=== PATIENT | female | born 1975 | race African-American/Black ===

== ENCOUNTER 2022-10-13 11:42 | Outpatient (REF) | payer OTHER, SELFPAY ==
[2022-10-13 18:34] LABS: CT PCR NOT DETECTED (Not Detect.); NG PCR NOT DETECTED (Not Detect.)
[2022-10-14 09:30] LABS: BV Int Neg Control Negative (Negative); BV Int Pos Control Positive (Positive)
[2022-10-21 05:03] LABS: HPV mRNA E6/E7 rflx Not Detected (Not Detected)
== END 2022-10-13 11:43 | disposition home or self-care (01) ==
LOC: HO.LNP 11:42
PROVIDERS: PCP Internal Medicine; Visit Provider Obstetrics & Gynecology
DX: Z01.419 Encounter for gynecological examination (general) (routine) without abnormal findings (principal); N81.4 Uterovaginal prolapse, unspecified; Z20.2 Contact with and (suspected) exposure to infections with a predominantly sexual mode of transmission
CPT/HCPCS: 0353U; 87480; 87510; 87624; 87660; 88142; 99202

== ENCOUNTER 2022-12-04 08:25 | Outpatient (REF) | payer OTHER, SELFPAY ==
[2022-12-04 11:18] LABS: MANUAL DIFF FLAG NO
[2022-12-04 11:46] LABS: Basophils Percent Auto 0.8 % (0-2); Eosinophils Absolute Auto 0.1 X10*3/uL (0.0-0.4); Eosinophils Percent Auto 1.5 % (0-4); Hematocrit 36.2 % (37.0-47.0); Hemoglobin 10.9 g/dl (12.0-16.0); Imm Gran Abs Auto 0.01 X10*3/uL (0.00-0.03); Imm Gran Pct Auto 0.2 % (0.0-0.4); Lymphocytes Absolute Auto 1.2 X10*3/uL (1.2-4.9); Lymphocytes Percent Auto 25.9 % (20-40); Mean Corpuscular HGB Conc 30.1 g/dl (31.0-35.0); Mean Corpuscular Hemoglobin 25.6 pg (27.0-33.0); Mean Corpuscular Volume 85.2 fL (80.0-98.0); Mean Platelet Volume 13.4 fL (9.4-12.3); Monocytes Absolute Auto 0.3 X10*3/uL (0.1-1.2); Monocytes Percent Auto 6.9 % (2-11); Neutrophils Absolute Auto 3.1 x10*3/uL (2.0-8.3); Neutrophils Percent Auto 64.7 % (45-73); Platelet Count 210 X10*3/uL (160-400); Red Blood Count 4.25 X10*6/uL (4.20-5.50); Red Cell Distribution Width 16.2 % (11.0-16.0); White Blood Count 4.8 X10*3/uL (4.8-10.8)
[2022-12-04 11:57] LABS: Alanine Aminotransferase 10 U/L (0-31); Albumin Level 4.3 g/dL (3.5-5.0); Alkaline Phosphatase 40 U/L (39-117); Anion Gap 13 (12-20); Aspartate Amino Transferase 12 U/L (5-31); Bilirubin Total 0.8 mg/dL (0.0-1.0); Blood Urea Nitrogen 5 mg/dL (9-16); Calcium 9.8 mg/dL (8.4-10.2); Carbon Dioxide 25 mmol/L (22-29); Chloride 108 mmol/L (96-108); Cholesterol 198 mg/dL; Estimated Glomerular Filt Rate > 60; Glucose Fasting 97 mg/dL (60-99); HDL Cholesterol 48 mg/dL; Iron 47 mcg/dL (30-160); LDL Cholesterol Calculated 130 mg/dl; Percent Iron Saturation 13 % (15-50); Potassium 4.1 mmol/L (3.3-5.1); Sodium 142 mmol/L (135-145); Total Iron Binding Capacity 368 mcg/dL (228-428); Total Protein 7.4 g/dL (6.5-8.0); Triglycerides 104 mg/dL; Unsaturated Iron Binding 321 ug/dL
[2022-12-04 12:48] LABS: Syphilis Screen Nonreactive (Nonreactive)
[2022-12-04 12:52] LABS: HBsAGNum1 0.52 S/CO (0.00-0.99); HIV AB/AG Nonreactive (Nonreactive); HIV Num 1 0.06 S/CO (0.00-0.99); Hepatitis B Surface Antigen Negative (Negative); ~HepC Num1 0.08 S/CO (0.00-0.79); ~Hepatitis C Antibody Nonreactive (Nonreactive)
== END 2022-12-04 08:26 | disposition home or self-care (01) ==
LOC: HO.HMGCLDS 08:25
PROVIDERS: Obstetrics & Gynecology; PCP Internal Medicine; Visit Provider Internal Medicine
DX: Z00.00 Encounter for general adult medical examination without abnormal findings (principal); Z11.4 Encounter for screening for human immunodeficiency virus [HIV]; D64.9 Anemia, unspecified; Z20.2 Contact with and (suspected) exposure to infections with a predominantly sexual mode of transmission
CPT/HCPCS: 36415; 80053; 80061; 83540; 85025; 86780; 86803; 87340; 87389

== ENCOUNTER 2023-01-19 07:58 | Outpatient (REF) | payer OTHER, SELFPAY ==
--- NOTE | ~2023-01-19 | MM_ITS ---
EXAMINATION: MM SCREENING DIGITAL BREAST TOMOSYNTHESIS, BILATERAL CLINICAL INFORMATION: Screening. Asymptomatic. The lifetime risk of breast cancer based on the Tyrer-Cuzick Model is 13.2%. COMPARISON: Mammography: None. TECHNIQUE: Digital breast tomosynthesis is performed in both the craniocaudal and mediolateral oblique views along with computer-aided detection (CAD). Synthesized 2D images are generated from the tomosynthesis. FINDINGS: The breasts are extremely dense, which lowers the sensitivity of mammography (ACR BI-RADS breast composition Category d). About the upper outer aspect of the right breast approximately 9 cm from the nipple there is a 4 mm circumscribed density with question single calcification about its wall. Spot compression views are recommended as well as rolled craniocaudal views. About the deep inferior aspect of the left breast on mediolateral oblique projection there is question of a 4 mm partially circumscribed density approximately 9 cm from the nipple. No craniocaudal correlate is seen and spot compression view of this is recommended. About the anterior aspect of the left breast there are 2 partially circumscribed densities approximately 3 cm from the nipple with one measuring approximately 1.6 x 1.5 cm in size. Spot compression views and ultrasound recommended. MM/MM tomosynthesis screening BI IMPRESSION: Bilateral breast findings for further evaluation as described above. ASSESSMENT: BI-RADS 0: Incomplete - Need Additional Imaging Evaluation RECOMMENDATION: 1. Additional views of the bilateral breasts. 2. Targeted ultrasound if warranted after review of the additional views. 3. Radiology department staff will contact the patient for additional imaging.
== END 2023-01-19 07:59 | disposition home or self-care (01) ==
LOC: HO.MAMMO 07:58
PROVIDERS: PCP Internal Medicine; Visit Provider Internal Medicine
DX: Z12.31 Encounter for screening mammogram for malignant neoplasm of breast (principal)
CPT/HCPCS: 77063; 77067

== ENCOUNTER 2023-01-26 07:58 | Outpatient (REF) | payer OTHER, SELFPAY ==
--- NOTE | ~2023-01-26 | MM_ITS ---
EXAMINATION: MM DIAGNOSTIC DIGITAL BREAST TOMOSYNTHESIS, BILATERAL US DIAGNOSTIC ULTRASOUND BREAST, BILATERAL CLINICAL INFORMATION: Recall from baseline screening for nodules with obscured margins anterior central inner left breast and mid posterior upper right breast. TC score 13%. COMPARISON: Mammography: 01/19/2023 (baseline, BI-RADS 0) TECHNIQUE: Mammography: Digital breast tomosynthesis is performed. 2D images are generated from the tomosynthesis. The following views are obtained: Bilateral spot CC, right ML, rolled right CC x2, left spot ML x2. Ultrasound bilateral breasts is performed targeted to the areas of mammographic interest using grayscale imaging and color Doppler without and with harmonics. FINDINGS: The breasts are heterogeneously dense, which may obscure small masses (ACR BI-RADS breast composition Category c). Additional views left breast confirm a smooth circumscribed mass central inner breast with partly obscured margins measuring approximately 1.4 cm. Small asymmetric density mid to posterior 11:00 right breast is also confirmed with smooth margins measuring under 1 cm. There is no architectural abnormality. Ultrasound: Left: Ultrasound left breast demonstrates a mildly complicated benign cyst corresponding to the mammographic finding periareolar upper inner breast measuring 1.9 x 1.4 cm. There is an incidental fine thin avascular internal septation. There is increased through-transmission of sound, no associated color flow. There is also a small simple cyst 8:00 position 5 cm from nipple measuring just under 0.5 cm. Right: Ultrasound right breast demonstrates 2 simple cysts, the larger 11:00 position 4 cm from nipple measuring 1.4 x 1.0 cm and 11:00 6 cm from nipple measuring 0.9 x 0.5 cm. Both are anechoic with increased through-transmission of sound and no color flow. There is also a complicated circumscribed satellite cyst 11:00 position 6 cm from nipple measuring 0.5 cm which shows some internal geographic echogenicity without color flow, likely apocrine metaplasia. This will be reassessed with targeted right breast ultrasound in 6 months. Results are discussed with the patient at time of visit. MM/MM tomosynthesis added view BI IMPRESSION: Right: -Mildly complicated probable benign cyst 11:00 position 5 cm from nipple with internal geographic avascular echogenicity likely related to apocrine metaplasia. Other incidental simple cysts. Left: -Benign fibrocystic changes. ASSESSMENT: BI-RADS 3: Probably Benign RECOMMENDATION: Targeted right breast ultrasound in 6 months. This patient's information was entered into a reminder system with a target due date for their next mammogram.
== END 2023-01-26 07:59 | disposition home or self-care (01) ==
LOC: HO.MAMMO 07:58
PROVIDERS: Visit Provider Internal Medicine
DX: R92.2 Inconclusive mammogram (principal)
CPT/HCPCS: 76642; 77062; 77066

== ENCOUNTER 2023-03-01 09:42 | Emergency (ER) | payer OTHER, SELFPAY ==
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
[2023-03-01 09:51] VITALS: BP 101/56; PULSE 84; RESP 20; TEMP 36.1; O2SAT 97; BMI 31.2
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
== END 2023-03-01 12:40 | disposition home or self-care (01) ==
PROVIDERS: Emergency Provider Emergency Medicine; PCP Internal Medicine
DX: S06.0XAA Concussion with loss of consciousness status unknown, initial encounter (principal); V43.52XA Car driver injured in collision with other type car in traffic accident, initial encounter; Y93.89 Activity, other specified; Y92.414 Local residential or business street as the place of occurrence of the external cause; Y99.9 Unspecified external cause status
CPT/HCPCS: 70450; 99282; 99284

== ENCOUNTER 2023-03-10 07:33 | Outpatient (AMB) | payer OTHER, SELFPAY ==
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
[2023-03-10 08:00] VITALS: BP 108/7; PULSE 70; O2SAT 99; BMI 30.9
== END 2023-03-10 10:36 | disposition home or self-care (01) ==
PROVIDERS: PCP Internal Medicine; Visit Provider Internal Medicine
DX: S06.0XAA Concussion with loss of consciousness status unknown, initial encounter (principal); J45.909 Unspecified asthma, uncomplicated
CPT/HCPCS: 99213

== ENCOUNTER → 2023-07-23 14:00 | Outpatient (BNV) | payer OTHER, SELFPAY | PROVIDERS: PCP Internal Medicine; Visit Provider Radiology Diagnostic Radiology | DX: N60.01 Solitary cyst of right breast (principal) | CPT/HCPCS: 76642 ==

== ENCOUNTER 2023-07-23 14:04 | Outpatient (REF) | payer OTHER, SELFPAY ==
--- NOTE | ~2023-07-23 | US_ITS ---
EXAMINATION: US DIAGNOSTIC ULTRASOUND BREAST, RIGHT CLINICAL INFORMATION: Follow-up mildly complicated circumscribed satellite cysts 11:00 position 6 cm from the nipple measuring 0.5 cm when compared with prior examination dated 01/26/2023.. COMPARISON: 01/26/2023. TECHNIQUE: Ultrasound of the breast is performed with real-time almazan scale imaging and color Doppler. FINDINGS: The previously seen 5 mm cyst at the 11:00 axis of the right breast, 6 image from the nipple, now has more of a typical appearance of a simple cyst with through transmission and is anechoic internally. No suspicious features. It is well-circumscribed. This finding is benign and no further follow-up recommended. The previously seen more lateral simple cyst is again noted measuring approximately 1.0 cm in diameter, however the more medial simple cyst is not well seen and may have resolved. There are no additional abnormal findings in the scanned area of the right breast. US/US breast RT limited mamm only IMPRESSION: 5 mm cyst at the 11:00 axis of the right breast, 6 cm from the nipple, now has the appearance of benign simple cyst. No further follow-up recommended. ASSESSMENT: BI-RADS 2: Benign RECOMMENDATION: Routine annual mammography screening. This patient's information was entered into a reminder system with a target due date for their next mammogram.
== END 2023-07-23 14:05 | disposition home or self-care (01) ==
LOC: HO.MAMMO 14:04
PROVIDERS: PCP Internal Medicine; Visit Provider Internal Medicine
DX: R92.2 Inconclusive mammogram (principal)
CPT/HCPCS: 76642

== ENCOUNTER 2024-03-01 12:58 | Outpatient (AMB) | payer OTHER, SELFPAY ==
--- NOTE | 2024-03-01 13:00 | MHC.OFFVIS ---
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 Clinical Services Manager Services: Clinical Services Manager Present Information Interpreted: clinical only Safety Coordinator: Safety Coordinator Present Allergies raw fruits Allergy (Mild, Uncoded 03/01/24 13:10) Swelling Medication List - Last Reconciled 03/01/24 by Indigo Alegre CNM albuterol sulfate 90 mcg/actuation 2 puffs inhalation Q6H PRN montelukast 10 mg PO BEDTIME Is last menstrual period known: Yes Last menstrual period: 02/12/24 Do you need a note to return to daycare/school/sports/work: No HPI HPI 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 She saw Dr. Vieyra last year had a cystocele and prolapse cervix and cervical polyp. She was referred to [facility] but they did not take her insurance so she was seen by Urogynecology in [place] she has been followed there and has been trying different pessary ease and currently is having little more success with 1 she is using in an effort to forestall hysterectomy. She said the cervical polyp popped and the blood let out of it and so it is less of a protrusion but it still is there. She uses the pessary is during day but takes them out at night. She was told by urogynecology that they would not remove just the polyp so she tends to discuss whether not that is a consideration again with Dr. Vieyra (I informed her I am not a printing screen assembler). She is interested in STI screening and getting blood work. She does meditation for self-care. [facility] Medical History Vaso vagal episode Asthma Family History (Updated 03/10/23 @ 08:48 by BRAEDEN Hoang) Maternal Grandmother Breast cancer Father DM (diabetes mellitus) Mother No problems noted. 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 Patient Tobacco Use Status: Never used Tobacco e-Cigarette/Vaping Use: Never Used service: No Current occupational status: employed Hearing needs: No Vision needs: Yes Female Reproductive History Menstrual Age of Menarche: 12 Duration of menses: 3-5 days Date of last menstrual period: 02/12/24 control method: none Total pregnancies: 1 Full term: 1 Date of last pap smear: 10/13/22 (negative) History of abnormal pap smear: No Date of Mammogram: 01/19/23 (BI-RADS 3: Probably Benign) Physical Exam Vital Signs: Last Vital Signs BP 122/70 03/01/24 13:09 BMI result Body Mass Index 33.6 Const General: healthy appearing, comfortable, no acute distress, well developed and alert Nutritional Appearance: average body habitus Orientation/consciousness: patient oriented x3 Limitations: no limitations HEENT Head: Yes normocephalic Neck Neck: Yes normal visual inspection Chest Chest palpation & inspection: normal inspection of the chest Breast/axilla inspection: normal inspection of the breasts and normal inspection of the axillae Breast/axilla palpation: normal palpation of the breasts and normal palpation of the axillae Resp Effort & Inspection: normal respiratory effort GI Inspection: Yes normal to inspection, No Abdominal wall edema and No distended Palpation (GI): Soft to palpation and nontender Other: External exam within normal limits but there is visible part of the cervix at the introitus cervix is long multiparous with a long protrusion posteriorly of about 2-3 cm. The cervix does prolapse down through the speculum during the exam and was pushed gently upwards with a school Pap Mica of the speculum to prevent prolapse. Uterus is small not very enlarged anteverted mobile nontender patient is able to do Kegel with some upward retraction the cervix but there still is prolapse. The discharge appears very healthy and normal and scant.. General: Yes bladder normal to palpation External Female Exam: normal external appearance and normal appearance of the urethra Speculum Exam - Vagina: normal appearance of the vagina, normal palpation and normal vaginal discharge Speculum Exam - Cervix: normal appearance of the cervix, normal palpation and nontender Bimanual exam- vagina & uterus: normal bimanual exam, normal palpation, uterine size normal, bladder normal to palpation, consistency normal, normal palpation, uterine mobility normal, uterine shape normal, No Cervical tenderness present, non-tender and no cervical motion tenderness Bimanual Exam- Adnexa, other: normal adnexae, no masses, normal and No adnexal tenderness Neuro General: patient oriented x3 Results Reviewed Results Reviewed: Name: Ngoc Jenkins Age/Sex: 47/F Attending: Elias Vieyra MD : 1975 Submitted by: Elias Vieyra MD Copies to: Yumiko Laureano MD MR #: [id number] Status: DEP REF Collected: 10/13/22 Location: [facility] Received: 10/13/22 Interpretation Satisfactory for evaluation. Negative for intraepithelial lesion or malignancy. HPV mRNA E6/E7: NOT DETECTED This assay detects E6/E7 viral messenger RNA (mRNA) from 14 high-risk HPV types (16, 18, 31, 33, 35, 39, 45, 51, 52, 56, 58, 59, 66, 68) HPV testing performed by [facility], [place], [place]. See reference laboratory portion of the EMR for entire report. Clinical Information LMP: 10/07/22 Previous PAP test: Unknown Material Received ThinPrep-Cervical Copies To Yumiko Laureano MD [address] [place] [address] Dr. [place]ández, [place] [id number] Elias Vieyra MD [address] [place] [address] Dr. Yessica Clifford [place] [id number] Electronically Signed By: Lisa Lee 10/25/22 [id number] The Pap Test is a screening procedure with the inherent possibility of both false negative and false positive results. Results should be interpreted in the context of historic and current clinical findings. Reliability of the Pap Test is enhanced by performing the test on a regular repetitive basis. Patient: Ngoc Jenkins Age/Sex: 47/F MR#: [id number] Page 1 of 1 Assessment & Plan Assessment & Plan (1) Cystocele with uterine prolapse: Comment: Cervical polyp Mild cystocele, central and bilateral paravaginal defect Mild rectocele; seeing urogynecologist in [place] currently using pessary.... Code(s): N81.4 - Uterovaginal prolapse, unspecified Category: Medical (2) Screen for STD (sexually transmitted disease): Code(s): Z11.3 - Encounter for screening for infections with a predominantly sexual mode of transmission Category: Medical (3) Well woman exam with routine gynecological exam: Code(s): Z01.419 - Encounter for gynecological examination (general) (routine) without abnormal findings Category: Medical Plan -----Discussed in this visit the following: healthy balanced diet, regular and consistent exercise, getting recommended health screens, doing the best she can for her particular health concerns, kegel exercises, pap smear screening and followup recommendations, mammography screening and SBE, normal changes in cycles in her life stage--- . She is not due for Pap smear as last year's Pap smear was completely within normal limits HPV. She is up-to-date on her mammograms she did have a couple of last year but the verdict was that there were just normal fibro cystic changes seen She is continuing with use of the pessary during the day at this time. She does not tend to have a discussion with gynecology about of the polyp and whether not that is possible it is less of a prolapsing problem how that it popped and periodically uses a little blood. Orders: Orders Syphilis Screen Today N81.4 - Uterovaginal prolapse, unspecified, Z01.419 - Encounter for gynecological examination (general) (routine) without abnormal findings, Z11.3 - Encounter for screening for infections with a predominantly sexual mode of transmission Hepatitis B Surface Antigen Today N81.4 - Uterovaginal prolapse, unspecified, Z01.419 - Encounter for gynecological examination (general) (routine) without abnormal findings, Z11.3 - Encounter for screening for infections with a predominantly sexual mode of transmission Hepatitis C Antibody Today N81.4 - Uterovaginal prolapse, unspecified, Z01.419 - Encounter for gynecological examination (general) (routine) without abnormal findings, Z11.3 - Encounter for screening for infections with a predominantly sexual mode of transmission HIV Ab/Ag Today N81.4 - Uterovaginal prolapse, unspecified, Z01.419 - Encounter for gynecological examination (general) (routine) without abnormal findings, Z11.3 - Encounter for screening for infections with a predominantly sexual mode of transmission Coding Level of Care Code Est Pt Prev Care 40-64y(42952) Diagnoses Cystocele with uterine prolapse N81.4 Screen for STD (sexually transmitted disease) Z11.3 Well woman exam with routine gynecological exam Z01.419
[2024-03-01 13:09] VITALS: BP 122/70; BMI 33.6
== END 2024-03-01 13:50 | disposition home or self-care (01) ==
LOC: HO.HWSM 12:58
PROVIDERS: PCP Internal Medicine; Visit Provider Advanced Practice Midwife
DX: Z01.419 Encounter for gynecological examination (general) (routine) without abnormal findings (principal); N81.4 Uterovaginal prolapse, unspecified
CPT/HCPCS: 99396

== ENCOUNTER 2024-03-01 12:58 | Outpatient (REF) | payer OTHER, SELFPAY ==
[2024-03-02 04:11] LABS: CT PCR NOT DETECTED (Not Detect.); NG PCR NOT DETECTED (Not Detect.)
[2024-03-02 09:48] LABS: Bacterial Vaginosis PCR NEGATIVE (Negative); Candida Group PCR NOT DETECTED (Not Detect); Candida glab krusei PCR NOT DETECTED (Not Detect); Trichomonas vaginalis PCR NOT DETECTED (Not Detect)
== END 2024-03-01 12:59 | disposition home or self-care (01) ==
LOC: HO.LAB 12:58
PROVIDERS: PCP Internal Medicine; Visit Provider Advanced Practice Midwife
DX: N81.4 Uterovaginal prolapse, unspecified (principal); N89.8 Other specified noninflammatory disorders of vagina; Z20.2 Contact with and (suspected) exposure to infections with a predominantly sexual mode of transmission
CPT/HCPCS: 0352U; 87491; 87591

== ENCOUNTER 2024-12-06 14:07 | Outpatient (REF) | payer OTHER, SELFPAY ==
--- OUTSIDE RECORDS SUMMARY | 2024-12-06 15:21 | XMS_ITS | Referral Summary ---
Author Organization [facility] Address [address] [place] [address] Care Team Providers Care Learning Center Coordinator Name Role Phone GeorgiYumiko Primary Care Provider [phone] Allergies Active Allergy Reactions Criticality Noted Date Comments Latex Rash 01/31/2024 Medications albuterol (PROAIR HFA,VENTOLIN HFA) 90 mcg inhaler INHALE 2 PUFFS EVERY 6 HOURS NEEDED FOR SHORTNESS OF BREATH OR WHEEZING 3 Active ibuprofen (MOTRIN) 800 mg tablet SMARTSI Tablet(s) By Mouth Every 8 Hours PRN 2 Active Social History Tobacco Use Types Packs/Day Years Used Date Smoking Tobacco: Never Smokeless Tobacco: Never Tobacco Cessation:Counseling Given: Not Answered Alcohol Use Standard Drinks/Week Comments Yes 2 (1 standard drink = 0.6 oz pur e alcohol) Comments No Sex and Gender Information Value Date Recorded Sex Assigned at Female 11/01/2023 8:50 AM EDT Legal Sex Female 11:28 AM EDT Gender Identity Female 11/01/2023 8:50 AM EDT Sexual Orientation Lesbian or Nicole 11/01/2023 8: 50 AM EDT Last Filed Vital Signs Vital Sign Reading Time Taken Comments Blood Pressure 138/92 01/31/2024 3:56 PM EDT Pulse - - Temperature - - Respiratory Rate - - Oxygen Saturation - - Inhaled Oxygen Concentration - - Weight 87.1 kg (192 lb) 01/31/2024 3:56 PM EDT Height 166.4 cm (5' 5.5 ) 01/31/2024 3:56 PM EDT Body Mass Index 31.46 01/31/2024 3:56 PM EDT Plan of Treatment Not on file Insurance [facility] Care Teams Learning Center Coordinator Relationship Specialty Start Date End Date Yumiko Laureano [address] [place] [address] [place] [id number] PCP - General Internal Medicine 01/27/23
--- OUTSIDE RECORDS SUMMARY | 2024-12-06 15:21 | XMS_ITS | Clinical Summary ---
Author Organization [facility] Address [address] [place] [address] Care Team Providers Care Hardboard Supervisor Name Role Phone GeorgiYumiko Primary Care Provider [phone] Allergies Active Allergy Reactions Criticality Noted Date [...] 01/31/2024 3:56 PM EDT Plan of Treatment Health Maintenance Due Date Last Done Comments Cervical Cancer Screening 1975 Cologuard 1975 Colon Cancer Screening 1975 Colonoscopy 1975 FOBT / Fit Test 1975 HIV Screening 1975 HPV and Pap Smear 1975 Hepatitis C Screening 1975 Pap Smear 1975 Sigmoidoscopy 1975 Hepatitis B Vaccines (1 of 3 - 19+ 3-dose series) 1994 DTaP,Tdap,and Td Vaccines (1 - Tdap) 1997 Mammogram 2015 COVID-19 Vaccine (3 - 2023-2 5 season) 2024 03/25/2021, 02/25/2021 Alcohol/Substance Use Screening 08/02/2024 Depression Screening and Follow-Up 08/02/2024 Social Drivers of Health Annual Screening 08/02/2024 Influenza Vaccine (Season Ended) 2025 RSV Vaccine (60+ years old a nd patients) (1 - 1-dose 75+ series) 2050 Pneumococcal Vaccine: Pediatric (0-5 Years) and At-Risk Patients (6-50 Years) Aged Out No longer eligible based on patient's age to complete this topic Insurance [facility] Care Teams Hardboard Supervisor Relationship Specialty Start Date End Date Yumiko Laureano [address] [place] [address] PCP - General Internal Medicine 01/27/23
== END 2024-12-06 14:08 | disposition home or self-care (01) ==
LOC: HO.MAMMO 14:07
PROVIDERS: PCP Internal Medicine; Visit Provider Internal Medicine
DX: Z13.89 Encounter for screening for other disorder (principal)

== ENCOUNTER 2024-12-13 10:45 | Outpatient (REF) | payer OTHER, SELFPAY ==
--- OUTSIDE RECORDS SUMMARY | 2024-12-13 12:25 | XMS_ITS | Clinical Summary ---
Author Organization [facility] Address [address] [place] [address] Care Team Providers Care Car Starter Name Role Phone GeorgiYumiko Primary Care Provider [phone] Allergies Active Allergy Reactions Criticality Noted Date [...] patient's age to complete this topic Insurance [facility] Care Teams Car Starter Relationship Specialty Start Date End Date Yumiko Laureano [address] [place] [address] PCP - General Internal Medicine 01/27/23
--- OUTSIDE RECORDS SUMMARY | 2024-12-13 12:25 | XMS_ITS | Referral Summary ---
Author Organization [facility] Address [address] [place] [address] Care Team Providers Care Software Sales Representative Name Role Phone GeorgiYumiko Primary Care Provider [phone] Allergies Active Allergy Reactions Criticality Noted Date [...] Plan of Treatment Not on file Insurance [facility] Care Teams Software Sales Representative Relationship Specialty Start Date End Date Yumiko Laureano [address] [place] [address] [place] [address] PCP - General Internal Medicine 01/27/23
[2024-12-13 21:28] LABS: Bacterial Vaginosis PCR NEGATIVE (Negative); Candida Group PCR NOT DETECTED (Not Detect); Candida glab krusei PCR NOT DETECTED (Not Detect); Trichomonas vaginalis PCR NOT DETECTED (Not Detect)
[2024-12-13 21:55] LABS: CT PCR NOT DETECTED (Not Detect.); NG PCR NOT DETECTED (Not Detect.)
== END 2024-12-13 10:46 | disposition home or self-care (01) ==
LOC: HO.LNP 10:45
PROVIDERS: PCP Internal Medicine; Visit Provider Obstetrics & Gynecology
DX: Z20.2 Contact with and (suspected) exposure to infections with a predominantly sexual mode of transmission (principal)
CPT/HCPCS: 81515; 87491; 87591

== ENCOUNTER 2024-12-13 10:45 | Outpatient (AMB) | payer OTHER, SELFPAY ==
--- NOTE | 2024-12-13 10:55 | A.OFFVIS_ITS ---
Vital Signs 12/13/24 10:56 Height 5 ft 5 in Weight 202 lb BMI 33.6 Intake Visit Reasons: breast issues Medical Grade Shoemaker Required: No Information Interpreted: non-clinical & clinical Engineering Document Control Clerk: Engineering Document Control Clerk Present ([facility]) Accompanied by: Self / Same As Patient Allergies raw fruits Allergy (Mild, Uncoded 12/13/24 10:56) Swelling HPI Comments Details: The patient is presenting complaining of right breast tender lump over the last few months no associated nipple discharge or any other concerns. In addition, The patient is complaining of markedly depressed mood, feelings of hopelessness, anxiety, tension, affective lability, Persistent and marked anger / irritability / increased interpersonal conflicts, decreased interest in usual activities, difficulty in concentrating, lack of energy, marked food cravings, insomnia, feeling overwhelmed or out of control, breast tenderness , headaches, bloating. all those symptoms are cyclic and disappear after menses. Those disturbances are affecting her usual social activities and relationships. The patient is requesting STD screen Last screening mammogram in 01/22 was BI-RADS 3, followed by right breast ultrasound in 07/21 Joanie which was BI-RADS 2 showed a 5 mm cyst at 11:00 6 cm from the nipple. No mammogram since then [facility] Medical History Vaso vagal episode Asthma Family History (Updated 03/10/23 @ 08:48 by Aranza Agustin Kassi) Maternal Grandmother Breast cancer Father DM (diabetes mellitus) Mother No problems noted. 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 Patient Tobacco Use Status: Never used Tobacco e-Cigarette/Vaping Use: Never Used service: No Current occupational status: employed Hearing needs: No Vision needs: Yes Female Reproductive History Menstrual Age of Menarche: 12 Review of Systems Const All systems reviewed & are unremarkable except as noted in HPI and below Physical Exam Vital Signs: BMI result Body Mass Index 33.6 Chest Chest palpation & inspection: normal inspection of the chest Breast/axilla inspection: inspection of breasts abnormal (Right breast tender lump 11:00 6 cm from the nipple, left breast wnl) General: Yes no CVA tenderness External Female Exam: normal external appearance and normal appearance of the urethra Speculum Exam - Vagina: normal appearance of the vagina, normal palpation, no lesions and no masses Speculum Exam - Cervix: normal appearance of the cervix, normal palpation, no lesions, no masses and nontender Bimanual exam- vagina & uterus: normal bimanual exam, normal palpation, uterine size normal, normal palpation, uterine shape normal, No Cervical tenderness present and non-tender Bimanual Exam- Adnexa, other: normal adnexae Back/Spine/Pelvis Back: no CVA tenderness Assessment & Plan Assessment & Plan (1) Breast lump on right side at 11 o'clock position: Comment: 6 cm from the nipple Code(s): N63.11 - Unspecified lump in the right breast, upper outer quadrant Category: Medical Plan: Discussed with the patient the finding on Breast exam (breast lump) .The differential diagnosis includes but not limited to lump/cyst/pre cancer/cancer or dense breast tissue. The work up includes breast US and diagnostic mammogram and referred the patient for surgical breast consult. (2) Screen for STD (sexually transmitted disease): Code(s): Z11.3 - Encounter for screening for infections with a predominantly sexual mode of transmission Category: Medical Plan: STD screening tests done includes: BV panel for trichomonas, GC/CT will send patient for serology std screening for HIV, RPR, Hep b s Ag, HepC Ab. Instructions given the patient to schedule a follow-up appointment for repeat serology screen in 6 months for possible false negatives. (3) PMDD (premenstrual dysphoric disorder): Code(s): F32.81 - Premenstrual dysphoric disorder Category: Medical Plan: TSH ordered. Will start with fluoxetine 10 mg p.o. q.d. to be started on day of onset of symptoms till start of menses. Will titrate the dose up to 20 mg as needed. Instructed the patient to call if symptoms don't improve and to schedule a follow-up appointment within 90 days. The patient verbalized und erstanding and agreed with the plan. Orders: Orders MM tomosynthesis diagnostic BI Today N63.11 - Unspecified lump in the right breast, upper outer quadrant US breast RT limited Today N63.11 - Unspecified lump in the right breast, upper outer quadrant Hepatitis C Antibody Today Z20.2 - Contact with and (suspected) exposure to infections with a predominantly sexual mode of transmission HIV Ab/Ag Today Z20.2 - Contact with and (suspected) exposure to infections with a predominantly sexual mode of transmission Syphilis Screen Today Z20.2 - Contact with and (suspected) exposure to infections with a predominantly sexual mode of transmission Hepatitis B Surface Antigen Today Z20.2 - Contact with and (suspected) exposure to infections with a predominantly sexual mode of transmission TSH reflex Free T4 Today F32.81 - Premenstrual dysphoric disorder Referrals General Surgery Referral N63.11 - Unspecified lump in the right breast, upper outer quadrant Medications: New fluoxetine To be started on the day of onset of symptoms till the start of menses 10 mg PO DAILY 42 caps 0RF Coding Level of Care Code Est Pt Level 3 (80399) Diagnoses Breast lump on right side at 11 o'clock position N63.11 Screen for STD (sexually transmitted disease) Z11.3 PMDD (premenstrual dysphoric disorder) F32.81
[2024-12-13 10:56] VITALS: BMI 33.6
--- OUTSIDE RECORDS SUMMARY | 2024-12-13 11:48 | XMS_ITS | Clinical Summary ---
Author Organization [facility] Address [address] [place] [address] Care Team Providers Care Unit Manager Name Role Phone GeorgiYumiko Primary Care Provider [phone] Allergies Active Allergy Reactions Criticality Noted Date [...] patient's age to complete this topic Insurance [facility] Care Teams Unit Manager Relationship Specialty Start Date End Date Yumiko Laureano [address] [place] [address] PCP - General Internal Medicine 01/27/23
--- OUTSIDE RECORDS SUMMARY | 2024-12-13 11:48 | XMS_ITS | Referral Summary ---
Author Organization [facility] Address [address] [place] [address] Care Team Providers Care Cold Meat Chef Name Role Phone GeorgiYumiko Primary Care Provider [phone] Allergies Active Allergy Reactions Criticality Noted Date [...] Plan of Treatment Not on file Insurance [facility] Care Teams Cold Meat Chef Relationship Specialty Start Date End Date Yumiko Laureano [address] [place] [address] [place] [address] PCP - General Internal Medicine 01/27/23
== END 2024-12-13 11:12 | disposition home or self-care (01) ==
LOC: HO.HWS 10:45
PROVIDERS: PCP Internal Medicine; Visit Provider Obstetrics & Gynecology
DX: N63.11 Unspecified lump in the right breast, upper outer quadrant (principal); Z11.3 Encounter for screening for infections with a predominantly sexual mode of transmission; F32.81 Premenstrual dysphoric disorder
CPT/HCPCS: 99213

== ENCOUNTER 2025-01-25 13:17 | Outpatient (AMB) | payer OTHER, SELFPAY ==
[2025-01-25 13:24] VITALS: BP 110/66; PULSE 86; TEMP 37.1; O2SAT 98; BMI 36.3
--- NOTE | 2025-01-25 13:24 | A.OFFPC_ITS ---
Vital Signs 01/25/25 13:24 Height 5 ft 5 in Weight 218 lb BMI 36.3 BP 110/66 Blood Pressure Location Lt brachial Position Sitting Pulse 86 Pulse Source Pulse Oximeter Temp 98.8 F Temp Source Oral Pulse Oximetry (%) 98 Oxygen Delivery Method Room Air Intake Visit Reasons: Annual PE Intake Note: Pt is here today for PE. Allergies raw fruits Allergy (Mild, Uncoded 01/25/25 13:32) Swelling Medication List - Last Reconciled 01/25/25 by Yumiko Laureano MD albuterol sulfate 90 mcg/actuation 2 puffs inhalation Q6H PRN fluoxetine 10 mg PO DAILY montelukast 10 mg PO BEDTIME Tobacco use date assessed: 01/25/25 Dental Screening Dental Screen Date: 01/25/25 Did you have a dental visit in the last 12 months?: Yes Did you have a dental problem in the last 6 months where you did not have access to dental care?: No Was dental information given to patient?: Patient has dentist HPI Annual PE HPI Details Pt presents for PE. Patient complains of gaining 30 lb in the last year. She reports lower extremity swelling and heaviness worse in the last few weeks with the hot weather. Patient has not been physically active but reports having dyspnea on exertion when walking up the stairs. She denies chest pain PND orthopnea. [facility] Medical History (Updated 01/25/25 @ 15:36 by Yumiko Laureano MD) PMDD (premenstrual dysphoric disorder) Annual physical exam Edema Anemia Vaso vagal episode Asthma Family History Maternal Grandmother Breast cancer Father DM (diabetes mellitus) Mother No problems noted. 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 1. Little interest or pleasure in doing things: not at all 2. Feeling down, depressed, or hopeless: several days 3. Trouble falling or staying asleep, or sleeping too much: more than half the days 4. Feeling tired or having little energy: nearly every day 5. Poor appetite or overeating: several days 6. Feeling bad about yourself - or that you are a failure or have let yourself or your family down: not at all 7. Trouble concentrating on things, such as reading the newspaper or watching television: several days 8. Moving or speaking so slowly that other people could have noticed. Or the opposite - being so fidgety or restless that you have been moving around a lot more than usual: not at all 9. Thoughts that you would be better off or of hurting yourself in some way: not at all Total score: 8 Depression Screening Interpretation: Negative Depression Screening Done: Yes 52249 - PHQ-9 Billing: Yes Source: Developed by Drs. Charles Bennett, Lilli Morris, Vladislav Ibanez and colleagues, with an educational claudia from [employer]. Thrive Questionnaire Date Thrive assessed: 01/25/25 I am a: Patient What is your living situation today?: I have a steady place to live Within the past 12 months, did the food you bought not last and you didn't have the money to get more?: Never true Within the past 12 months, did you worry whether your food would run out before you got money to buy more?: Never true Do you have trouble paying for medicines?: No Do you have trouble getting transportation to medical appointments?: No Do you have trouble paying your heating and electricity bill?: No Do you have trouble taking care of your child, family member or friend?: No Do you have trouble with day-to-day activities such as bathing, preparing meals, shopping, managing finances, etc.?: No Are you currently unemployed and looking for a job?: No Are you interested in more education?: Yes Please select the resources that you would like help with: None Currently or been in a relationship where the following occur: I choose not to answer THRIVE Score: 0 AUDIT C Alcohol Use Questionnaire (AUDIT-C) 1. How often do you have a drink containing alcohol?: 2-4 times a month 2. How many drinks containing alcohol do you have on a typical day when you are drinking?: 1 or 2 3. How often do you have six or more drinks on one occasion?: Never Total Score: 2 JAMILA-7 AMB Questionnaire JAMILA-7 Date JAMILA - 7 assessed: 01/25/25 Feeling nervous, anxious, or on edge: 1 = Several days Not being able to stop or control worryin = Not at all Worrying too much about different things: 0 = Not at all Trouble relaxin = Several days Being so restless that it is hard to sit still: 0 = Not at all Becoming easily annoyed or irritable: 1 = Several days Feeling afraid as if something awful might happen: 0 = Not at all Total JAMILA-7 score (0-4 normal; 5-9 mild; 10-14 moderate; 15-21 severe): 3 Source: Developed by Drs. Charles Bennett, Lilli Morris, Vladislav Ibanez and colleagues, with an educational claudia from [employer]. JAMILA-7 Assessment Billing JAMILA-7 Assessment Tool: JAMILA-7 Assessment 80922 Review of Systems Const All systems reviewed & are unremarkable except as noted in HPI and below Reports no additional complaints Eyes Reports no additional complaints ENT Reports no additional complaints Card Reports no additional complaints Resp Reports no additional complaints GI Reports no additional complaints Reports no additional complaints Musc Reports no additional complaints Physical exam (Primary Care) Vital Signs: Last Vital Signs Temp 98.8 F 01/25/25 13:24 Pulse 86 01/25/25 13:24 BP 110/66 01/25/25 13:24 Pulse Ox 98 01/25/25 13:24 Oxygen Delivery Method Room Air 01/25/25 13:24 BMI result Body Mass Index 36.3 Tobacco/Smoking Status: Tobacco use Status Tobacco use date assessed 01/25/25 01/25/25 13:37 Patient Tobacco Use Status Never used Tobacco 01/25/25 13:37 e-Cigarette/Vaping Use Never Used 01/25/25 13:24 PHQ-9: PHQ-9 Score PHQ-9: Total score 8 01/25/25 13:37 Depression Screening Interpretation: Negative Thrive Assessment: Date of Thrive Assessment Date Thrive assessed 01/25/25 01/25/25 13:37 Currently or been in a relationship where the following occur: I choose not to answer Const General: no acute distress HENMT Head: Yes normal to inspection Ears: hearing grossly normal bilaterally Face and sinus: Yes normal facial exam Mouth: Normal oral and palatal mucosa present Throat: Yes posterior oropharynx normal Eyes General: appearance normal, both eyes and all related structures Neck Neck: Yes no lymphadenopathy and Yes supple Resp Effort & Inspection: normal respiratory effort Auscultation: clear to auscultation bilaterally Cardio Rhythm: regular rhythm Heart sounds: S1 normal heart sound present and S2 normal heart sound present GI Inspection: Yes normal to inspection Palpation (GI): Soft to palpation Percussion: Yes normal to percussion Auscultation: normal bowel sounds Extrem Other: Nonpitting lower extremities edema Coding Level of Care Code Est Pt Prev Care 40-64y(08108) Diagnoses Annual physical exam Z00.00 Anemia D64.9 Edema R60.9 Additional Codes JAMILA-7 Assessment Billing - JAMILA-7 Assessment Tool: JAMILA-7 Assessment 17633 ([id number]) PHQ-9 - 27834 - PHQ-9 Billing: Yes ([id number]) Assessment & Plan Assessment & Plan (1) Annual physical exam: Code(s): Z00.00 - Encounter for general adult medical examination without abnormal findings Category: Medical Plan: Well-balanced diet, regular exercise, weight loss discussed with the patient. she will return for fasting blood work. Patient is up-to-date with the Pap smear by weld inspector and will schedule mammogram. She declined colonoscopy. Cologuard will be checked (2) Anemia: Comment: Iron def , used to get Iron infusion last 2014 Code(s): D64.9 - Anemia, unspecified Category: Medical Plan: Check CBC and iron (3) Edema: Comment: Chronic lower extremities Code(s): R60.9 - Edema, unspecified Category: Medical Plan: But running lower extremity lymphedema furosemide 20 mg daily for 3 days then every other day will be try for 1 month. Patient will follow-up in 1 month Orders: Orders Lipid Panel Today D64.9 - Anemia, unspecified, Z00.00 - Encounter for general adult medical examination without abnormal findings IRON PROFILE Today D64.9 - Anemia, unspecified, Z00.00 - Encounter for general adult medical examination without abnormal findings Vitamin D 25-OH Total Today D64.9 - Anemia, unspecified, Z00.00 - Encounter for general adult medical examination without abnormal findings Vitamin B12 and Folate Today D64.9 - Anemia, unspecified, Z00.00 - Encounter for general adult medical examination without abnormal findings UA w Microscopic Today D64.9 - Anemia, unspecified, Z00.00 - Encounter for general adult medical examination without abnormal findings B Type Natriuretic Peptide Today R60.9 - Edema, unspecified Comprehensive [place]. Panel Fast Today D64.9 - Anemia, unspecified, Z00.00 - E ncounter for general adult medical examination without abnormal findings Complete Blood Count Auto Diff Today D64.9 - Anemia, unspecified, Z00.00 - Encounter for general adult medical examination without abnormal findings TSH reflex Free T4 Today D64.9 - Anemia, unspecified, Z00.00 - Encounter for general adult medical examination without abnormal findings Referrals Cologuard Test Z12.11 - Encounter for screening for malignant neoplasm of colon, Z12.12 - Encounter for screening for malignant neoplasm of rectum Medications: New furosemide (Lasix) 20 mg PO DAILY 30 tabs 0RF
== END 2025-01-25 14:10 | disposition home or self-care (01) ==
LOC: HO.HMCC 13:18
PROVIDERS: PCP Internal Medicine; Visit Provider Internal Medicine
DX: Z00.00 Encounter for general adult medical examination without abnormal findings (principal); D64.9 Anemia, unspecified; R60.9 Edema, unspecified

== ENCOUNTER → 2025-01-25 13:17 | Outpatient (BNVA) | payer OTHER, SELFPAY | PROVIDERS: PCP Internal Medicine; Visit Provider Internal Medicine | DX: Z00.00 Encounter for general adult medical examination without abnormal findings (principal); D64.9 Anemia, unspecified; R60.9 Edema, unspecified | CPT/HCPCS: 96127 ==

== ENCOUNTER 2025-01-30 13:43 | Outpatient (REF) | payer OTHER, SELFPAY ==
[2025-01-30 14:08] LABS: MANUAL DIFF FLAG NO
--- OUTSIDE RECORDS SUMMARY | 2025-01-30 14:53 | XMS_ITS | Referral Summary ---
Author Organization [facility] Address [address] [place] [address] Care Team Providers Care Assistant Program Director Name Role Phone GeorgiYumiko Primary Care Provider Allergies Active Allergy Reactions Criticality Noted Date [...] Not on file Insurance [facility] Care Teams Assistant Program Director Relationship Specialty Start Date End Date Yumiko Laureano [address] [place] [address] [place] [id number] PCP - General Internal Medicine 01/27/23
[2025-01-30 15:01] LABS: Hematocrit 34.9 % (37.0-47.0); Hemoglobin 10.8 g/dl (12.0-16.0); Imm Gran Abs Auto 0.02 X10*3/uL (0.00-0.03); Imm Gran Pct Auto 0.3 % (0.0-0.4); Lymphocytes Absolute Auto 1.5 X10*3/uL (1.2-4.9); Mean Corpuscular HGB Conc 30.9 g/dl (31.0-35.0); Mean Corpuscular Hemoglobin 24.5 pg (27.0-33.0); Mean Corpuscular Volume 79.1 fL (80.0-98.0); NRBC Abs Auto 0.000 X10*3/uL (0.0-0.012); NRBC Pct Auto 0.0 /100WBC (0.0-0.2); Platelet Count 323 X10*3/uL (160-400); Red Blood Count 4.41 X10*6/uL (4.20-5.50); White Blood Count 6.7 X10*3/uL (4.8-10.8)
[2025-01-30 15:07] LABS: Appearance Urine Clear; Glucose Urine UA Negative (Negative); PH 6.5 (5.0-9.0); Specific Gravity - Urine 1.025 (1.005-1.025); UMIC TRIGGER UA YES
[2025-01-30 15:30] LABS: B Type Natriuretic Peptide < 10 pg/mL (<100)
[2025-01-30 15:37] LABS: Alanine Aminotransferase 15 U/L (0-31); Albumin Level 4.5 g/dL (3.5-5.0); Alkaline Phosphatase 49 U/L (39-117); Anion Gap 13 (12-20); Aspartate Amino Transferase 18 U/L (5-31); Blood Urea Nitrogen 11 mg/dL (9-16); Calcium 8.9 mg/dL (8.4-10.2); Carbon Dioxide 25 mmol/L (22-29); Chloride 106 mmol/L (96-108); Cholesterol 247 mg/dL (<200); Estimated Glomerular Filt Rate > 60; HDL Cholesterol 59 mg/dL (>40); Iron 69 mcg/dL (30-160); Percent Iron Saturation 17 % (15-50); Potassium 3.9 mmol/L (3.3-5.1); Sodium 140 mmol/L (135-145); Total Iron Binding Capacity 418 mcg/dL (228-428); Total Protein 7.7 g/dL (6.5-8.0); Triglycerides 127 mg/dL (<150); Unsaturated Iron Binding 349 ug/dL
[2025-01-30 16:09] LABS: Folate 8.3 ng/mL (> or = 4.0); Vitamin B12 296 pg/mL (200-900)
[2025-01-31 07:53] LABS: Syphilis Screen Nonreactive (Nonreactive)
[2025-01-31 08:19] LABS: HBsAGNum1 0.28 S/CO (0.00-0.99); HIV Num 1 0.04 S/CO (0.00-0.99); Hepatitis B Surface Antigen Negative (Negative); ~HepC Num1 0.08 S/CO (0.00-0.79); ~Hepatitis C Antibody Nonreactive (Nonreactive)
== END 2025-01-30 13:44 | disposition home or self-care (01) ==
LOC: HO.LAB 13:43
PROVIDERS: Absent Provider Obstetrics & Gynecology; PCP Internal Medicine; Visit Provider Internal Medicine
DX: Z00.00 Encounter for general adult medical examination without abnormal findings (principal); D64.9 Anemia, unspecified; R60.9 Edema, unspecified; Z20.2 Contact with and (suspected) exposure to infections with a predominantly sexual mode of transmission; F32.81 Premenstrual dysphoric disorder
CPT/HCPCS: 36415; 80053; 80061; 81001; 82306; 82607; 82746; 83540; 83880; 84443; 85025; 86780; 86803; 87340; 87389

== ENCOUNTER 2025-02-15 09:42 | Outpatient (AMB) | payer OTHER, SELFPAY ==
[2025-02-15 09:47] VITALS: BP 104/66; PULSE 97; RESP 18; TEMP 36.8; O2SAT 97; BMI 35.4
--- NOTE | 2025-02-15 09:47 | A.OFFPC_ITS ---
Vital Signs 02/15/25 09:47 Height 5 ft 5 in Weight 213 lb BMI 35.4 BP 104/66 Blood Pressure Location Lt brachial Position Sitting Respiration 18 Pulse 97 Pulse Source Pulse Oximeter Temp 98.2 F Temp Source Oral Pulse Oximetry (%) 97 Oxygen Delivery Method Room Air Intake Visit Reasons: 3 week follow up Intake Note: Pt is here today for 3 weeks follow up visit. Allergies raw fruits Allergy (Mild, Uncoded 01/25/25 13:32) Swelling Medication List - Last Reconciled 02/15/25 by Yumiko Laureano MD albuterol sulfate 90 mcg/actuation 2 puffs inhalation Q6H PRN fluoxetine 10 mg PO DAILY furosemide (Lasix) 20 mg PO DAILY montelukast 10 mg PO BEDTIME Tobacco use date assessed: 01/25/25 Dental Screening Dental Screen Date: 01/25/25 HPI 3 week follow up HPI Details Patient presents for the follow-up of chronic lower extremities' edema. She has been taking furosemide but noticed the most improvement in lower extremity edema after 3 days of taking the medication. Patient has improved her diet , started exercising regularly and lost 5 lb in the last 3 weeks. She denies dyspnea on exertion chest pain palpitations. [facility] Medical History (Updated 02/15/25 @ 10:27 by Yumiko Laureano MD) PMDD (premenstrual dysphoric disorder) Annual physical exam Edema Anemia Vaso vagal episode Asthma Family History Maternal Grandmother Breast cancer Father DM (diabetes mellitus) Mother No problems noted. 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 Housing: Apartment Patient Tobacco Use Status: Never used Tobacco e-Cigarette/Vaping Use: Never Used service: No Current occupational status: employed Hearing needs: No Vision needs: Yes Female Reproductive History Menstrual Age of Menarche: 12 Questionnaire Thrive Questionnaire Date Thrive assessed: 01/25/25 I am a: Patient What is your living situation today?: I have a steady place to live Within the past 12 months, did the food you bought not last and you didn't have the money to get more?: Never true Within the past 12 months, did you worry whether your food would run out before you got money to buy more?: Never true Do you have trouble paying for medicines?: No Do you have trouble getting transportation to medical appointments?: No Do you have trouble paying your heating and electricity bill?: No Do you have trouble taking care of your child, family member or friend?: No Do you have trouble with day-to-day activities such as bathing, preparing meals, shopping, managing finances, etc.?: No Are you currently unemployed and looking for a job?: No Are you interested in more education?: Yes Please select the resources that you would like help with: None Currently or been in a relationship where the following occur: I choose not to answer THRIVE Score: 0 JAMILA-7 AMB Questionnaire JAMILA-7 Date JAMILA - 7 assessed: 01/25/25 Source: Developed by Drs. Charles Bennett, Lilli Morris, Vladislav Ibanez and colleagues, with an educational claudia from [employer]. Review of Systems Const All systems reviewed & are unremarkable except as noted in HPI and below ENT Reports no additional complaints Card Reports no additional complaints Resp Reports no additional complaints GI Reports no additional complaints Physical exam (Primary Care) Vital Signs: Last Vital Signs Temp 98.2 F 02/15/25 09:47 Pulse 97 02/15/25 09:47 Resp 18 02/15/25 09:47 BP 104/66 02/15/25 09:47 Pulse Ox 97 02/15/25 09:47 Oxygen Delivery Method Room Air 02/15/25 09:47 BMI result Body Mass Index 35.4 Tobacco/Smoking Status: Tobacco use Status Tobacco use date assessed 01/25/25 02/15/25 09:47 Patient Tobacco Use Status Never used Tobacco 02/15/25 09:47 e-Cigarette/Vaping Use Never Used 02/15/25 09:47 Thrive Assessment: Date of Thrive Assessment Date Thrive assessed 01/25/25 02/15/25 09:47 Currently or been in a relationship where the following occur: I choose not to answer Const General: no acute distress HENMT Head: Yes normal to inspection Eyes General: appearance normal, both eyes and all related structures Neck Neck: Yes supple Resp Effort & Inspection: normal respiratory effort Auscultation: clear to auscultation bilaterally Cardio Rhythm: regular rhythm Heart sounds: S1 normal heart sound present and S2 normal heart sound present GI Inspection: Yes normal to inspection Extrem Other: 2+ nonpitting edema bilaterally Coding Level of Care Code Est Pt Level 4 (50285) Diagnoses Anemia D64.9 Edema R60.9 Hyperlipidemia E78.5 Assessment & Plan Assessment & Plan (1) Anemia: Comment: Iron def , used to get Iron infusion last 2014, nl Iron studies 01/2025 Code(s): D64.9 - Anemia, unspecified Category: Medical Plan: Monitor CBC (2) Edema: Comment: Chronic lower extremities Code(s): R60.9 - Edema, unspecified Category: Medical Plan: Continue furosemide PRN and wearing compression knee-highs was recommend (3) Hyperlipidemia: Code(s): E78.5 - Hyperlipidemia, unspecified Category: Medical Plan: Low-cholesterol diet increase physical activity weight loss discussed with the patient, follow-up in 3 months with a fasting labs before Orders: Orders Lipid Panel 3 Months D64.9 - Anemia, unspecified, E78.5 - Hyperlipidemia, unspecified Vitamin D 25-OH Total 3 Months D64.9 - Anemia, unspecified, E78.5 - Hyperlipidemia, unspecified Hemoglobin Electrophoresis 3 Months D64.9 - Anemia, unspecified, E78.5 - Hyperlipidemia, unspecified Medications: Refilled furosemide (Lasix) 20 mg PO DAILY 30 tabs 1RF Patient Instructions: Continue furosemide PRN. Patient was advised to wear compression knee highs
--- OUTSIDE RECORDS SUMMARY | 2025-02-15 10:03 | XMS_ITS | Referral Summary ---
Author Organization [facility] Address [address] [place] [address] Care Team Providers Care Air Support Operations Operator Name Role Phone GeorgiYumiko Primary Care Provider [phone] Allergies Active Allergy Reactions Criticality Noted Date [...] Plan of Treatment Not on file Insurance [facility] Care Teams Air Support Operations Operator Relationship Specialty Start Date End Date Yumiko Laureano [address] [place] [address] [place] [id number] PCP - General Internal Medicine 01/27/23
== END 2025-02-15 10:13 | disposition home or self-care (01) ==
LOC: HO.HMCC 09:43
PROVIDERS: PCP Internal Medicine; Visit Provider Internal Medicine
DX: D64.9 Anemia, unspecified (principal); R60.9 Edema, unspecified; E78.5 Hyperlipidemia, unspecified

== ENCOUNTER 2025-02-19 11:30 | Outpatient (REF) | payer OTHER, SELFPAY ==
--- NOTE | ~2025-02-19 | MM_ITS ---
EXAMINATION: MM DIAGNOSTIC DIGITAL BREAST TOMOSYNTHESIS, BILATERAL Limited right breast ultrasound. CLINICAL INFORMATION: Right breast palpable lump. COMPARISON: Mammography: Comparison is made with relevant prior exams. TECHNIQUE: Digital breast mammography with tomosynthesis is performed in both the craniocaudal and mediolateral oblique views along with computer-aided detection (CAD). FINDINGS: The breasts are heterogeneously dense, which may obscure small masses (ACR BI-RADS breast composition Category c). Bilateral circumscribed oval masses which wax and wane some were demonstrated to be simple cyst on prior ultrasound consistent with benign fibrocystic changes and cysts. Left: There are no significant masses, abnormal calcifications, or other abnormalities. Right: BB marker in the upper outer breast posterior depth with an underlying circumscribed oval mass. No suspicious calcifications or other abnormal findings. Targeted color Doppler ultrasound scanning in the right breast area of patient's palpable lump in the upper outer quadrant demonstrates a simple cyst at 11:00 8 cm from the nipple measuring 10 x 13 x 17 mm. At 9:00 8 cm from the nipple there are adjacent simple to minimally complicated cysts with thin intervening septations measuring 7 x 4 x 5 mm and 8 x 6 x 9 mm. Results are provided to the patient at time of visit by the technologist. MM/MM tomosynthesis diagnostic BI IMPRESSION: Left: Benign. Right: Simple to minimally complicated cysts in the upper outer right breast correlating with the patient's palpable lumps. Benign. Recommend clinical evaluation and follow-up. ASSESSMENT: BI-RADS BI-RADS 2 - Benign Findings RECOMMENDATION: 1 year F/U This patient's information was entered into a reminder system with a target due date for their next mammogram. Electronically signed by: Natali Daley DO 02/19/2025 12:24 PM EDT
--- OUTSIDE RECORDS SUMMARY | 2025-02-19 12:37 | XMS_ITS | Referral Summary ---
Author Organization [facility] Address [address] [place] [address] Care Team Providers Care Sanitation Laborer Name Role Phone GeorgiYumiko Primary Care Provider [phone] Allergies Active Allergy Reactions Criticality Noted Date [...] Plan of Treatment Not on file Insurance [facility] Care Teams Sanitation Laborer Relationship Specialty Start Date End Date Yumiko Laureano [address] [place] [address] [place] [address] PCP - General Internal Medicine 01/27/23
--- OUTSIDE RECORDS SUMMARY | 2025-02-19 12:37 | XMS_ITS | Clinical Summary ---
Author Organization [facility] Address [address] [place] [phone] Phone Care Team Providers Care Laborer Tree Tapping Name Role Phone Yumiko Laureano MD Primary Care Provider [phone] Allergies No known active allergies Medications albuterol (PROAIR HFA) 90 mcg/actuation inhaler Inhale 2 puffs into the lungs every 4 (four) hours as needed. 08/15/2012 Active Medication-Free Text Iron 30 MG Tablet, Sig: Orally Active cyanocobalamin (VIT B-12) 1000 MCG tablet as directed p.o. one daily Active Social History Tobacco Use Types Packs/Day Years Used Date Smoking Tobacco: Never Smokeless Tobacco: Never Tobacco Cessation:Counseling Given: Not Answered Alcohol Use Standard Drinks/Week Comments Yes 0 (1 standard drink = 0.6 oz pur e alcohol) Education Answer Date Recorded Are you interested in more education? Not on reina e 11/27/2022 Are you concerned about learning? Not on file 11/27/2022 No 11/27/2022 No 11/27/2022 Digital Access Answer Date Recorded No 12/28/2022 No 12/28/2022 Reliable internet access at home? Not on file 12/28/2022 Device with a working camera? Not on file Intimate Partner Violence Answer Date R ecorded Are you denied basic needs s uch as food, clothing, or medical care? No 09/30/2023 In the past 12 months have y ou been in a relationship with a person who hurts, threatens, or tries to control you? No 09/30/2023 Are you denied basic needs s uch as food, clothing, or medical care? No 09/30/2023 In the past 12 months have y ou been in a relationship with a person who hurts, threatens, or tries to control you? No 09/30/2023 Comments Unknown Sex and Gender Information Value Date Recorded Sex Assigned at Female 09/30/2023 5:01 PM EST Legal Sex Female 9:28 PM EDT Gender Identity Female 09/30/2023 5:01 PM EST Sexual Orientation Queer 09/30/2023 5: 01 PM EST Last Filed Vital Signs Vital Sign Reading Time Taken Comments Blood Pressure 132/81 09/30/2023 5:02 PM EST Pulse 78 09/30/2023 5:02 PM EST Temperature 37.1 C (98.8 F) 09/30/2023 5:02 PM EST Respiratory Rate 18 09/30/2023 5:02 PM EST Oxygen Saturation 97% 09/30/2023 5:02 PM EST Inhaled Oxygen Concentration - - Weight 86.2 kg (190 lb) 09/30/2023 5:02 PM EST Height 165.1 cm (5' 5 ) 09/30/2023 5:02 PM EST Body Mass Index 31.62 09/30/2023 5:02 PM EST Plan of Treatment Health Maintenance Due Date Last Done Comments Adult Td,Tdap Booster 1975 DEPRESSION SCREENING 1987 HEPATITIS C SCREENING 1993 HIV ONE-TIME SCREENING (18-6 5 YEARS) 1993 SCREENING FOR DIABETES 2010 PAP SMEAR 08/26/2015 08/26/2012 MAMMOGRAM 2015 LIPID PANEL 08/15/2017 08/15/2012 COLOGUARD 2020 FIT TEST 2020 FOBT 2020 SIGMOIDOSCOPY 2020 VIRTUAL COLONOSCOPY 2020 COVID-19 VACCINE (2023-2 5 season) 2024 03/25/2021, 02/25/2021 COLONOSCOPY 05/29/2026 05/29/2016 COLORECTAL CANCER SCREENING 05/29/2026 SMOKING STATUS SCREENING (On ce After 26 Yrs) Completed 09/30/2023 HEPATITIS A VACCINES Aged Out No long er eligible based on patient's age to complete this topic HIB VACCINES Aged Out No longer eligi ble based on patient's age to complete this topic MENINGOCOCCAL VACCINES (ACWY) Aged Out No longer eligible based on patient's age to complete this topic MENINGOCOCCAL VACCINES (B) Aged Out N o longer eligible based on patient's age to complete this topic PNEUMOCOCCAL VACCINES (0-49 years) Aged Out No longer eligible b ased on patient's age to complete this topic Medical Devices Not on file Procedures Procedure Name Priority Date/Time Associated Diagnosis Comments OUTSIDE LDL Routine 08/15/2012 from Last 3 Months or Most Recently Relevant to Health Maintenance Results * Outside LDL (08/15/2012) LDL - External 110 50 - 250 mg/ml [facility] Provider LAB BLOOD ORDERABLES Nancy l Result from Last 3 Months or Most Recently Relevant to Health Maintenance Insurance [employer] [facility] [employer]quisitive Systems[employer] DIRECT [facility] [employer] [facility] [employer] DIRECT [employer] DIRECT [employer] DIRECT CONNECTORCARE DIRECT [facility] DIRECT Care Teams Laborer Tree Tapping Relationship Specialty Start Date End Date Yumiko Laureano MD [address] [place] [address] PCP - General Internal Medicine 09/30/23 Additional Source Comments The information contained in this document represents components of the legal health record. It is not the complete legal health record.[facility]
== END 2025-02-19 11:31 | disposition home or self-care (01) ==
LOC: HO.MAMMO 11:30
PROVIDERS: PCP Internal Medicine; Visit Provider Internal Medicine
DX: N63.11 Unspecified lump in the right breast, upper outer quadrant (principal)
CPT/HCPCS: 76642; 77062; 77066

== ENCOUNTER → 2025-02-19 11:30 | Outpatient (BNV) | payer OTHER, SELFPAY | PROVIDERS: PCP Internal Medicine; Visit Provider Internal Medicine | DX: N60.01 Solitary cyst of right breast (principal) | CPT/HCPCS: 76642; 77062; 77066 ==

== ENCOUNTER 2025-02-21 09:33 | Outpatient (AMB) | payer OTHER, SELFPAY ==
--- NOTE | 2025-02-21 09:34 | A.OFFVIS_ITS ---
Intake Visit Reasons: Breast u/s follow up Allergies raw fruits Allergy (Mild, Uncoded 01/25/25 13:32) Swelling HPI Comments Details: The patient is schedule telehealth visit for follow-up regarding diagnostic mammogram and breast ultrasound which showed the following: IMPRESSION: Left: Benign. Right: Simple to minimally complicated cysts in the upper outer right breast correlating with the patient's palpable lumps. Benign. Recommend clinical evaluation and follow-up. ASSESSMENT: BI-RADS BI-RADS 2 - Benign Findings RECOMMENDATION: 1 year F/U The patient has scheduled follow-up appointment with General surgery on 03/05/25 [facility] Medical History PMDD (premenstrual dysphoric disorder) Annual physical exam Edema Anemia Vaso vagal episode Asthma Family History Maternal Grandmother Breast cancer Father DM (diabetes mellitus) Mother No problems noted. 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 [employer] Housing: Apartment Patient Tobacco Use Status: Never used Tobacco e-Cigarette/Vaping Use: Never Used service: No Current occupational status: employed Hearing needs: No Vision needs: Yes Female Reproductive History Menstrual Age of Menarche: 12 Review of Systems Const All systems reviewed & are unremarkable except as noted in HPI and below Reports as per HPI and Reports no additional complaints GI Reports no additional complaints Reports no additional complaints Telehealth Telehealth Telehealth Platform: Telephone Location of provider rendering services: practice address Location of patient: address on file Patient Identification confirmed using: Name, : Yes Telehealth method: video Patient verbally consented to treatment: Yes Patient verbally consented to billing insurance company: Yes Patient informed of any privacy concerns related to visit: Yes Minutes spent on Phone/Video with Pt.: 4 Assessment & Plan Assessment & Plan (1) Breast lump on right side at 11 o'clock position: Comment: 6 cm from the nipple Code(s): N63.11 - Unspecified lump in the right breast, upper outer quadrant Category: Medical Plan: Discussed with the patient the finding of mammogram and breast ultrasound, complex cysts, will defer the management to general surgery. All questions answered, the patient verbalized understanding. I spent a total of 20 minutes reviewing the chart, talking to the patient via video and documenting in the medical record. Coding Level of Care Code Tele Est Pt Level 3 (59719) Diagnoses Breast lump on right side at 11 o'clock position N63.11
--- OUTSIDE RECORDS SUMMARY | 2025-02-21 10:03 | XMS_ITS | Referral Summary ---
Author Organization [facility] Address [address] [place] [address] Care Team Providers Care Consulting Marine Engineer Name Role Phone GeorgiYumiko Primary Care Provider [...] Plan of Treatment Not on file Insurance [facility] Care Teams Consulting Marine Engineer Relationship Specialty Start Date End Date Yumiko Laureano [address] [place] [address] [place] [address] PCP - General Internal Medicine 01/27/23
--- OUTSIDE RECORDS SUMMARY | 2025-02-21 10:04 | XMS_ITS | Clinical Summary ---
Author Organization [facility] Address [address] [place] [address] Phone Care Team Providers Care Shoe Repair Supervisor Name Role Phone Yumiko Laureano MD Primary Care Provider [phone] Allergies No known active allergies Medications albuterol [...] - External 110 50 - 250 mg/ml [facility] Provider LAB BLOOD ORDERABLES Nancy l Result from Last 3 Months or Most Recently Relevant to Health Maintenance Insurance [employer] [facility] [email or web address] DIRECT [facility] [employer] [facility] CONNECTORCARE DIRECT CONNECTORCARE DIRECT CONNECTORCARE DIRECT CONNECTORCARE DIRECT [facility] DIRECT Care Teams Shoe Repair Supervisor Relationship Specialty Start Date End Date Yumiko Laureano MD [address] [place] [address] PCP - General Internal Medicine 09/30/23 Additional Source Comments The information contained in this document represents components of the legal health record. It is not the complete legal health record.[facility]
== END 2025-02-21 10:13 | disposition home or self-care (01) ==
LOC: HO.HWS 09:33
PROVIDERS: PCP Internal Medicine; Visit Provider Obstetrics & Gynecology
DX: N63.11 Unspecified lump in the right breast, upper outer quadrant (principal)
CPT/HCPCS: 98005

== ENCOUNTER 2025-03-05 08:52 | Outpatient (AMB) | payer OTHER, SELFPAY ==
--- NOTE | 2025-03-05 09:02 | MHC.OFFVIS ---
Vital Signs 03/05/25 09:09 Height 5 ft 5 in Weight 209 lb BMI 34.8 BP 110/60 Blood Pressure Location Lt brachial Position Sitting Pulse 72 Intake Visit Reasons: RUQ lump of breast Intake Note: pt states, My drug regulatory affairs specialist sent me because of my mammogram results. c/o pain at times, pt felt it Kicking Machine Operator Required: No Allergies raw fruits Allergy (Mild, Uncoded 03/05/25 09:04) Swelling Medication List - Last Reconciled 03/05/25 by Carlos Baron RN albuterol sulfate 90 mcg/actuation 2 puffs inhalation Q6H PRN fluoxetine 10 mg PO DAILY furosemide (Lasix) 20 mg PO DAILY HPI Comments Details: 49-year-old female patient presenting for evaluation of a lump of the right breast in the 11 o'clock position. She was evaluated by Dr. Vieyra on 12/13/2024 with complaints of tenderness in the right breast of several months duration. She denied any skin changes, nipple discharge but did note a palpable mass. An ultrasound of the right breast in the 11 o'clock position 8 cm from the nipple revealed a 10 x 13 x 17 mm simple to minimally complicated cyst corresponding to the patient's palpable lump, felt to be benign by ultrasound. She reports some mild discomfort at the site of the cyst which waxes and wanes in severity. She denies a previous history of breast surgery or needle biopsies. Family history is negative for breast or ovarian cancer. Her last menstrual period began today she is 1 para 1, menarche at age of 11, 1st child born when she was 29. She denies previous genetic testing and denies Ashkenazi Cheondoism heritage. [facility] Medical History PMDD (premenstrual dysphoric disorder) Annual physical exam Edema Anemia Vaso vagal episode Asthma Surgical History Hx of external ear surgery Family History Maternal Grandmother Brain cancer Father DM (diabetes mellitus) Mother No problems noted. 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 Patient Tobacco Use Status: Never used Tobacco e-Cigarette/Vaping Use: Never Used service: No Current occupational status: employed Hearing needs: No Vision needs: Yes Female Reproductive History Menstrual Age of Menarche: 11 Date of last menstrual period: 03/04/25 control method: none Total pregnancies: 1 Full term: 1 Review of Systems Const All systems reviewed & are unremarkable except as noted in HPI and below Denies chills, Denies fever(s), Denies headache(s), Denies poor appetite and Denies weakness ENT Denies headache(s) Card Denies chest pain, Denies irregular heart rhythm, Denies palpitations and Denies dyspnea Resp Denies cough, Denies excessive phlegm production and Denies dyspnea GI Denies abdominal pain, Denies bloating, Denies change in bowel habits, Denies constipation, Denies heartburn, Denies diarrhea, Denies nausea and Denies vomiting Denies urinary frequency Musc Denies back pain, Denies muscle weakness and Denies numbness Skin/Breast Denies breast swelling, Denies breast skin changes, Denies breast pain, Denies breast mass, Denies changing lesions and Denies unusual bruising Neuro Denies headache(s), Denies numbness, Denies paresthesias and Denies weakness Psych Denies anxiety and Denies depression Endo Denies palpitations Allan/Lymph Denies lymphadenopathy Physical Exam Const General: cooperative and no acute distress Nutritional Appearance: well nourished Orientation/consciousness: patient oriented x3 Limitations: no limitations HEENT Head: Yes normocephalic and Yes atraumatic Ears: hearing grossly normal bilaterally Chest Other: Left breast: No skin change, no nipple retraction, no nipple discharge, no palpable mass, no enlarged lymph nodes. Right breast: No skin change, no nipple retraction, no nipple discharge, no palpable mass, no enlarged lymph nodes, no palpable cyst noted in the upper outer quadrant Resp Effort & Inspection: normal respiratory effort, no audible wheezes, no cough and no respiratory distress Cardio Jugular venous distension: no JVD GI Inspection: Yes normal to inspection Skin Other: Warm, dry, no rash Neuro General: patient oriented x3 Extrem General: Yes no clubbing, cyanosis or edema Assessment & Plan Assessment & Plan (1) Breast lump on right side at 11 o'clock position: Comment: 6 cm from the nipple Code(s): N63.11 - Unspecified lump in the right breast, upper outer quadrant Category: Medical Plan 49-year-old female patient presenting with complaints of occasional pain in the upper outer quadrant of the right breast of several months duration. The pain comes and goes but is never very severe. Ultrasound of the right breast confirms a simple cyst which appears benign. Examination today revealed no suspicious findings in either breast with no palpable mass in the upper outer quadrant. Options include continued observation versus ultrasound-guided aspiration of the cyst. She is comfortable with observation in his not interested in undergoing needle aspiration. She will continue with self-examination and should call as needed for changes in her symptoms. Coding Level of Care Code New Pt Level 4 (81692) Diagnoses Breast lump on right side at 11 o'clock position N63.11
[2025-03-05 09:09] VITALS: BP 110/60; PULSE 72; BMI 34.8
--- OUTSIDE RECORDS SUMMARY | 2025-03-05 09:11 | XMS_ITS | Clinical Summary ---
Author Organization [facility] Address [address] [place] [address] Phone Care Team Providers Care Food Critic Name Role Phone Yumiko Laureano MD Primary Care Provider [phone] Allergies No known active allergies Medications albuterol [...] - External 110 50 - 250 mg/ml [facility] Provider LAB BLOOD ORDERABLES Nancy l Result from Last 3 Months or Most Recently Relevant to Health Maintenance Insurance [employer] [facility] [employer] DIRECT [facility] [employer] [facility] CONNECTORCARE DIRECT CONNECTORCARE DIRECT CONNECTORCARE DIRECT CONNECTORCARE DIRECT [facility] DIRECT Care Teams Food Critic Relationship Specialty Start Date End Date Yumiko Laureano MD [address] [facility] [place] [address] PCP - General Internal Medicine 09/30/23 Additional Source Comments The information contained in this document represents components of the legal health record. It is not the complete legal health record.[facility]
--- OUTSIDE RECORDS SUMMARY | 2025-03-05 09:11 | XMS_ITS | Referral Summary ---
Author Organization [facility] Address [address] [place] [address] Care Team Providers Care Emergency Medical Dispatcher Name Role Phone GeorgiYumiko Primary Care Provider [phone] Allergies Active Allergy Reactions Criticality Noted Date [...] file Insurance [facility] Care Teams Emergency Medical Dispatcher Relationship Specialty Start Date End Date Yumiko Laureano [address] [place] [address] [place] [address] PCP - General Internal Medicine 01/27/23
== END 2025-03-05 09:23 | disposition home or self-care (01) ==
PROVIDERS: PCP Internal Medicine; Visit Provider Surgery
DX: N63.11 Unspecified lump in the right breast, upper outer quadrant (principal)
CPT/HCPCS: 99204

== ENCOUNTER 2025-03-22 09:02 | Outpatient (AMB) | payer OTHER, SELFPAY ==
--- NOTE | 2025-03-22 09:06 | MHC.OFFVIS ---
Intake Visit Reasons: medication follow up Allergies raw fruits Allergy (Mild, Uncoded 03/05/25 09:04) Swelling HPI Comments Details: Presenting for follow-up for PMDD treatment with fluoxetine. The patient has taken 10 mg p.o. q.d. starting 3-5 days prior to menstrual cycle sometimes not daily, has noticed a marked improvement in her symptoms PFSH Medical History PMDD (premenstrual dysphoric disorder) Annual physical exam Edema Anemia Vaso vagal episode Asthma Surgical History Hx of external ear surgery Family History Maternal Grandmother Brain cancer Father DM (diabetes mellitus) Mother No problems noted. 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 Housing: Apartment Patient Tobacco Use Status: Never used Tobacco e-Cigarette/Vaping Use: Never Used service: No Current occupational status: employed Hearing needs: No Vision needs: Yes Female Reproductive History Menstrual Age of Menarche: 11 Review of Systems Const All systems reviewed & are unremarkable except as noted in HPI and below Reports as per HPI and Reports no additional complaints GI Reports no additional complaints Reports no additional complaints Assessment & Plan Assessment & Plan (1) PMDD (premenstrual dysphoric disorder): Comment: On fluoxetine Code(s): F32.81 - Premenstrual dysphoric disorder Category: Medical Plan: Recommended take fluoxetine in the 1st day of her symptoms and continue daily till menstrual cycle , refill sent to the patient's pharmacy. Medications: Refilled fluoxetine To be started on the day of onset of symptoms till the start of menses 10 mg PO DAILY 42 caps 0RF Coding Level of Care Code Est Pt Level 3 (99926) Diagnoses PMDD (premenstrual dysphoric disorder) F32.81
--- OUTSIDE RECORDS SUMMARY | 2025-03-22 10:03 | XMS_ITS | Clinical Summary ---
Author Organization [facility] Address [address] [place] [address] Phone Care Team Providers Care Clinical Ob Name Role Phone Yumiko Laureano MD Primary Care Provider [phone] Allergies No known active allergies Medications albuterol [...] - External 110 50 - 250 mg/ml [facility] Provider LAB BLOOD ORDERABLES Nancy l Result from Last 3 Months or Most Recently Relevant to Health Maintenance Insurance [employer] [facility] [employer] DIRECT [facility] [employer] [facility] CONNECTORCARE DIRECT CONNECTORCARE DIRECT CONNECTORCARE DIRECT CONNECTORCARE DIRECT [facility] DIRECT Care Teams Clinical Ob Relationship Specialty Start Date End Date Yumiko Laureano MD [address] [place] [address] PCP - General Internal Medicine 09/30/23 Additional Source Comments The information contained in this document represents components of the legal health record. It is not the complete legal health record.[facility]
--- OUTSIDE RECORDS SUMMARY | 2025-03-22 10:03 | XMS_ITS | Clinical Summary ---
Author Organization [facility] Address [address] [place] [address] Care Team Providers Care Brim Ironer Hand Name Role Phone GeorgiYumiko Primary Care Provider [phone] Allergies Active Allergy Reactions Criticality Noted Date [...] of Health Annual Screening 08/02/2024 Influenza Vaccine (#1) 2025 RSV Vaccine (60+ years old a nd patients) (1 - 1-dose 75+ series) 2050 Pneumococcal Vaccine: Pediatric (0-5 Years) and At-Risk Patients (6-50 Years) Aged Out No longer eligible based on patient's age to complete this topic Insurance [facility] Care Teams Brim Ironer Hand Relationship Specialty Start Date End Date Yumiko Laureano [address] [place] [address] PCP - General Internal Medicine 01/27/23
== END 2025-03-22 09:30 | disposition home or self-care (01) ==
LOC: HO.HWS 09:02
PROVIDERS: PCP Internal Medicine; Visit Provider Obstetrics & Gynecology
DX: F32.81 Premenstrual dysphoric disorder (principal)
CPT/HCPCS: 99213